=== PATIENT | female | born 1980 | race Caucasian/White ===

== ENCOUNTER 2023-09-14 20:10 | Emergency (ER) | payer BC, SELFPAY ==
[2023-09-14 20:13] VITALS: BP 144/99
--- NOTE | 2023-09-14 23:14 | ED.MUSCINJ ---
HPI-Injury
General
Chief Complaint: Musculo-Skeletal Complaint
Source: patient
Exam Limitations: none
Time Seen by Provider: 09/14/23 20:26
Nursing documentation reviewed up to this point in time: agreed with
Travel History
Have you had any contact with someone who has COVID-19?: No
Do you have any symptoms of coronavirus? Fever > 100 degrees, chills, cough, shortness of breath, sore throat, loss of taste or smell, muscle aches, or headache?: No
History of Present Illness-Injury
Is this injury a work related problem?: No
Is pt an associate of [facility]?: No
Initial Injury comments:
Patient to ED with complaint of left foot pain. States she missed 2 steps and heard a crack. Incident occurred today.
Past History
Past History
ED Past Medical History: Hypothyroidism and Other (PE 2006 related to control pills. Pleurisy, chronic sinusitis)
ED Past Surgical History: None
Social History
Tobacco: Non-smoker
Alcohol: None
Drug: None
Personal:
Living: with family
Employment: Employed
Family History
Family History: Other (Noncontributory)
Review of Systems
Review of Systems
Allergies reviewed?: Yes
All Other Systems: ROS reviewed and negative except as documented in HPI and ROS
Constitutional: Reports no symptoms
Musculoskeletal: Reports joint pain (Pain to left dorsl foot)
Skin: Reports no symptoms
Neurological: Reports no symptoms
Psychiatric: Reports no symptoms
Musculoskeletal Injury Exam
Musculoskeletal Injury Exam
Left Dorsal Foot:
Pain with Movement?: Moderate
Tender to palpation?: Moderate
Soft tissue swelling?: None
External deformity and angulation?: None
Joint effusion?: None
Contusion?: None
Hematoma-local bleeding into tissue?: None
Strain- Sprain- Tear (Connective tissue injury)?: Moderate
Crepitus with movement?: No
Joint instability?: No
Malalignment/deformity?: No
Range of motion: Limited
Distal skin color and temperature: normal-warm & good color
Capillary Refill: normal
Normal distal neurovascular exam?: Yes
Peripheral Pulses: posterior tibial (left): 3+ and dorsalis pedis (left): 3+
Phy Exam
General Physical Exam
General Presentation: well appearing and no apparent distress
General age: appears stated age
General Skin: warm and dry
General Habitus: normal
Musculoskeletal Exam
Musculoskeletal Exam: neuro vasc intact
Skin Exam
Skin Exam: normal color, warm/dry and no rash
Psychiatric Exam
Psychiatric Exam: normal mood/affect
Injury Course
Orders/Labs/Results
Orders:
Orders
09/14/23 20:18
CR Foot - Left Min 3 Views Urgent
Comment:
Reason For Exam: fall, injury
09/14/23 20:56
Crutches-Treatment ONCE
Ortho Boot Left- Treatment ONCE
Short or tall?: Short
*Radiology
Radiology exam reviewed: radiology read reviewed
*Pulse Oximetry
Patient hypoxic: no
*Critical Care Note
Total Time (30-74mins, 75-104mins- exclusive of procedures): Not Applicable
ED Attending Note
-
Portions of this chart may have been created with voice recognition software.� Occasional wrong word or��sound alike� substitutions may have occurred due to the inherent limitations of voice recognition software.
Discharge Plan
Departure
Patient Disposition: Home (Routine Discharge)
Date of Disposition: 09/14/23
Time of Disposition: 20:57
Patient with high blood pressure during this ER visit?: No
Condition: Good
Covid-19: Not Applicable
Discharge Problem:
Metatarsal fracture
Instructions: How to Use Crutches, Ibuprofen, Using Cold for Pain, Foot Fracture
Prescriptions:
No Action
meloxicam 7.5 MG tablet
7.5 mg PO DAILY
Patient Comments:
1-2 pills once a day
levothyroxine 100 MCG tablet
100 mcg PO DAILY
prednisone 20 MG tablet
40 mg PO DAILY Qty: 8 0RF
Rx Instructions:
Take with meal.
cetirizine 10 MG tablet
10 mg PO DAILY Qty: 30 2RF
prednisone 50 MG tablet
50 mg PO DAILY Qty: 4 0RF
valacyclovir 500 MG tablet
1,000 mg PO BID Qty: 28 0RF
Referrals:
Yissel Jimenez I., DO [Active] - Call in 1-3 days for appt
Ashley German CRNP [Family Provider] -
Interventions
Interventions:
*Risk Screen - Suicide Last Done: 09/14/23 20:13
*General Assessment Last Done: 09/14/23 20:13
*Neglect/Abuse Screening Last Done: 09/14/23 20:13
*Nursing Disposition Last Done: 09/14/23 21:35
ED-Musculoskeletal Assessment Last Done: 09/14/23 21:10
Discharge Date and Time
Discharge Date/Time: 09/14/23 21:37
== END 2023-09-14 21:37 | disposition home or self-care (01) ==
LOC: EMR 20:10
PROVIDERS: EMERGENCY PHYSICIAN Emergency Medicine; FAMILY PHYSICIAN Nurse Practitioner Family
DX: S92.352A Displaced fracture of fifth metatarsal bone, left foot, initial encounter for closed fracture (principal); W10.9XXA Fall (on) (from) unspecified stairs and steps, initial encounter; E03.9 Hypothyroidism, unspecified; Z86.711 Personal history of pulmonary embolism
CPT/HCPCS: 29515; 99283; 73630

== ENCOUNTER 2025-04-17 18:44 | Emergency (ER) | payer BC, SELFPAY ==
[2025-04-17 18:49] VITALS: BP 130/82
[2025-04-17 19:19] LABS: Hematocrit 39.5 % (37.0-47.0); Hemoglobin 13.7 g/dL (12.0-16.0); Mean Corp Hgb Conc. 34.7 g/dL (33.0-37.0); Mean Corpuscular Volume 88.8 fL (81.0-99.0); Nucleated Red Blood Cells % 0.3 %; Platelet Count 205 10^3/uL (130-400); Red Cell Dist. Width 12.2 % (11.5-14.5)
[2025-04-17 19:28] LABS: HCG, Serum Qualitative Screen Negative
[2025-04-17 19:31] LABS: ALT (SGPT) 24 U/L (0-35); AST (SGOT) 25 U/L (14-36); Albumin 4.5 g/dl (3.5-5.0); Alkaline Phosphatase 55 U/L (38-126); Blood Urea Nitrogen 23 mg/dl (7-17); Calcium 9.4 mg/dl (8.4-10.2); Carbon Dioxide 28 mmol/L (22-30); Chloride 104 mmol/L (98-107); Glucose 113 mg/dl (70-99); Potassium 3.7 mmol/L (3.5-5.1); Sodium 136 mmol/L (135-145); Total Protein 7.0 g/dl (6.3-8.2); eGFR > 60.00
[2025-04-17 19:42] LABS: Troponin I < 0.012 ng/ml
[2025-04-17 21:39] VITALS: BMI 28.0
--- NOTE | 2025-04-17 21:39 | ED.GENMED ---
History of Present Illness
General
Chief Complaint: Fainting/Passed Out
Source: patient and spouse ( at bedside)
Exam Limitations: none
Time Seen by Provider: 04/17/25 20:59
Nursing documentation reviewed up to this point in time: agreed with
History of Present Illness
History of Present Illness:
Patient is a 44-year-old female who presents the emergency department after syncopal event while at dinner earlier [facility]. Patient states that she was sitting at the dinner table when she took a bite of food and then had a sharp pain in her mid
chest. This pain lasted approximately 30 seconds and then resolved. However�shortly following this patient became extremely hot, lightheaded and her states she then lost consciousness while sitting at the table. Fortunately, patient did
not hit her head or sustain the injuries.
Patient's denies any convulsive aspect to syncopal event. She did not have any bowel/bladder incontinence. She denies any preceding shortness of breath.
By my assessment�patient describes a feeling of mild acid reflux however otherwise denies any persistent chest pain. She has no shortness of breath or tearing back pain. No nausea, vomiting, or persistent lightheadedness.
Patient does have a history of pulmonary embolism many years ago and was briefly treated with anticoagulation which was thought to be provoked by oral contraceptive pills. Patient denies any recent travel or recent surgeries. No pain or swelling
in lower extremities. No exogenous hormone use
Past History
Past History
ED Past Medical History: Hypothyroidism and Other (PE 2006 related to control pills. Pleurisy, chronic sinusitis)
ED Past Surgical History: None
Social History
Tobacco: Non-smoker
Alcohol: None
Drug: None
Personal:
Living: with family
Employment: Employed
Family History
Family History: Other (Noncontributory)
Review of Systems
Review of Systems
Allergies reviewed?: Yes
All Other Systems: ROS reviewed and negative except as documented in HPI and ROS
Phy Exam
Physical Exam
Physical Exam:
Vitals: Patient's vital signs are stable. Afebrile
General: Patient is very well appearing, no acute distress
Skin: Warm and dry, no rashes or lesions
Head: Normocephalic, atraumatic
Eyes: Sclera nonicteric.
Throat: Protecting airway
Neck: Normal ROM, no cervical spine tenderness, no meningismus
Cardiac: Regular rate and rhythm, no murmurs. 2+ palpable radial pulses bilaterally. No reproducible chest wall tenderness
Pulm: Normal respiratory effort, no wheezes, rales, rhonchi heard on exam
Abdomen: Abdomen soft and nontender. No epigastric tenderness
Extremities: No evidence of cyanosis or edema. Negative Homans' sign bilaterally.
Neuro: AAOx3. Grossly intact.
Psychiatric: Normal affect.
Course
Orders/Labs/Results
Orders:
Orders
04/17/25 18:56
Electrocardiogram (*1) Stat
Reason for Study: Syncope
Test Result ONCE
04/17/25 19:08
Complete Blood Count/With Diff Urgent
Comprehensive Metabolic Panel Urgent
HCG, Serum Qualitative Screen Urgent
Comment: Notify provider if positive test present
Troponin I Urgent
04/17/25 21:24
Cardiac Monitoring- Treatment ONCE
0.9% Sodium Chloride 1000 ml [Nss] 1,000 ml IV BOLUS
04/17/25 21:25
CR Chest - 2 Views Urgent
Comment:
Reason For Exam: chest pain
04/17/25 21:49
D-Dimer Urgent
04/17/25 22:15
EKG- Treatment ONCE
04/17/25 22:21
Troponin I Urgent
04/17/25 22:45
CT Chest PE Study Urgent
Comment: hx PE
Reason For Exam: CP, syncope
04/18/25
Electrocardiogram (*1) Stat
Comment: DONE
Abnormal Lab Results
04/17/25 04/17/25
19:08 21:49
MPV 10.6 H fL
(7.4-10.4)
Abs Immat Gran (auto) 0.1 H 10^3/uL
(0-0.05)
Immature Gran % 1.1 H %
(0-0.5)
D-Dimer 0.73 H ug/mlFEU
(0.00-0.50)
BUN 23 H mg/dl
(7-17)
Glucose 113 H mg/dl
(70-99)
04/17/25 19:08
04/17/25 19:08
Vital Signs
Initial and Last Documented VS:
Initial Vital Signs
Temp Pulse Resp BP Pulse Ox
98.1 F 63 16 130/82 98
04/17/25 18:49 04/17/25 18:49 04/17/25 18:49 04/17/25 18:49 04/17/25 18:49
Last Documented Vital Signs
Temp Pulse Resp BP Pulse Ox
98.1 F 64 16 115/67 98
04/17/25 18:49 04/18/25 00:52 04/18/25 00:52 04/18/25 00:52 04/18/25 00:52
MDM/Problems Addressed
Differential Diagnosis Includes:
Not limited to: Vasovagal syncope, dehydration, cardiac arrhythmia, seizure, etc.
MDM/Problems Addressed:
44-year-old female presenting after near syncopal event while at dinner tonight proceeded by sharp chest pain. No proceeding shortness of breath. No associated urinary/fecal incontinence. Symptoms have improved by my evaluation. She has stable vital
signs. On exam � patient very well appearing, no distress. Cardiac/pulmonary assessment unremarkable. She has no reproducible chest tenderness or abdominal pain.
Differential broad. Most suspicious for vasovagal syncope due to pain response/swallowing. Do not suspect seizure. Lower suspicion for cardiac etiology given prodromal symptoms.
Plan: labs, troponins/EKG given chest pain. While I do not suspect pulmonary embolism � patient does have a history of PE in the past and is no longer anticoagulated, will screen with d-dimer. Will give IV fluids.
Update: labs reviewed. No clinically significant abnormalities. Initial troponin /EKG reveal normal sinus rhythm without acute ischemic changes. Unfortunately � d-dimer mildly elevated to 0.7. Will proceed with CTA chest.
Update: repeat troponins undetectable with nonn ischemic EKG. CTA with no evidence of pulmonary embolism, however does incidentally note cholelithiasis although no findings of acute cholecystitis. Do not suspect related to symptoms today, however
was discussed with patient and provided referral information for general surgery in the future.
Patient has remained asymptomatic in the ED. She has been up and ambulating to the bathroom multiple times. No detected arrythmia.
Clinical picture most consistent with vasovagal syncope. Work up in ED negative � stable for discharge home with continued primary care follow-up outpatient. Strict return precautions discussed.
Chronic conditions affecting care:
History of pulmonary embolism
Acute Exacerbation and/or Progression of Chronic Illness:
N/A
*Radiology
Radiology exam reviewed: preliminary read by ED provider (Chest x-ray reviewed by me-no acute abnormalities) and radiology read reviewed
*Pulse Oximetry
SaO2: 98
Oxygen Mode of Delivery: Room air
Patient hypoxic: no
*EKG
Interpreted by ED Provider?: Yes
EKG Intrepretation Date: 04/17/25
Interpretation: normal
Comparison EKG: changes noted
Heart Rate: 71
Rate: normal
Rhythm: sinus
[place]: normal axis
Interval: normal QT interval
QRS Pattern: normal QRS
Ischemia: no ischemia
*Site Acquisition Specialist Interpretation
Rate: normal
Interpretation: normal
Heart Rate: 62
Rhythm: sinus
*Critical Care Note
Total Time (30-74mins, 75-104mins- exclusive of procedures): Not Applicable
ED Attending Note
-
Portions of this chart may have been created with voice recognition software.� Occasional wrong word or��sound alike� substitutions may have occurred due to the inherent limitations of voice recognition software.
Discharge Plan
Departure
Patient Disposition: Home (Routine Discharge)
Date of Disposition: 04/18/25
Time of Disposition: 00:49
Patient with high blood pressure during this ER visit?: No
Condition: Good
Discharge Problem:
Syncope
Instructions: Syncope (Fainting) (DC)
Prescriptions:
No Action
levothyroxine 125 mcg Tablet
125 mcg PO DAILY
Referrals:
Manjit Vargas MD [Active, Surgical]
Ashley German CRNP [Family Provider, Family Practice]
Activity Restrictions/Additional Instructions:
RETURN TO THE EMERGENCY DEPARTMENT WITH ANY CHEST PAIN, SHORTNESS OF BREATH/DIFFICULTY BREATHING, PERSISTENT LIGHTHEADEDNESS/DIZZINESS, SEVERE ABDOMINAL PAIN, REPEAT EPISODES OF FAINTING, WORSENING IN CURRENT SYMPTOMS, OR ANY OTHER CONCERNS
- As discussed�your lab work and cardiac enzymes showed no acute abnormalities. You were given IV fluids in the emergency department.
-Continue to stay well-hydrated. Follow-up with primary care next week for further evaluation/management to ensure that your symptoms have improved
- Your CT scan showed no evidence of pulmonary embolism however did make note of gallstones. I would recommend a low-fat diet. You can follow-up with general surgeon outpatient as needed for further management.
Monitor your symptoms closely and return to the emergency department with any acute worsening/new symptoms or any other concern
Interventions
Interventions:
*Risk Screen - Suicide Last Done: 04/17/25 18:49
*General Assessment Last Done: 04/17/25 21:40
*Neglect/Abuse Screening Last Done: 04/17/25 18:49
*ED- Fall Risk Assessment Last Done: 04/17/25 18:49
*ED COVID-19 Vaccine History Last Done: 04/18/25 00:57
*Nursing Disposition Last Done: 04/18/25 00:57
ED- Cardiac Assessment Last Done: 04/17/25 21:54
ED- Neurological Assessment Last Done: 04/17/25 21:54
Discharge Date and Time
Discharge Date/Time: 04/18/25 00:58
Print Language: HUNGARIAN
[2025-04-17 21:44] VITALS: BP 115/68
[2025-04-17] MEDS: NSS 1000 IV (21:49)
[2025-04-17 22:12] LABS: D-Dimer 0.73 ug/mlFEU (0.00-0.50)
[2025-04-17 22:56] LABS: Troponin I < 0.012 ng/ml
[2025-04-18 00:52] VITALS: BP 115/67
== END 2025-04-18 00:58 | disposition home or self-care (01) ==
LOC: EMR 18:44
PROVIDERS: Emergency Medicine; Physician Assistant; EMERGENCY PHYSICIAN Student in an Organized Health Care Education/Training Program; FAMILY PHYSICIAN Nurse Practitioner Family
DX: R55 Syncope and collapse (principal); E03.9 Hypothyroidism, unspecified; K80.20 Calculus of gallbladder without cholecystitis without obstruction; Z86.711 Personal history of pulmonary embolism
CPT/HCPCS: 99284; 96360; 71046; 71275; 80053; 84484; 84703; 85025; 85379; 93005; Q9967

== ENCOUNTER → 2025-07-23 14:53 | Outpatient (REF) | payer BC, SELFPAY | LOC: HWRCS 14:53 | PROVIDERS: ATTENDING PHYSICIAN Internal Medicine Cardiovascular Disease; FAMILY PHYSICIAN Family Medicine | DX: R55 Syncope and collapse (principal) | CPT/HCPCS: 93306 ==